=== PATIENT | female | born 1990 | race Caucasian/White ===

== ENCOUNTER 2018-04-10 15:52 | Inpatient (IN) | payer BC ==
[2018-04-10] MEDS ORDERED: fentaNYL* 50 MCG/ML 2 ML VIAL (100 MCG VIAL) ONE (16:54)
[2018-04-10] MEDS ORDERED: OBEPIDURAL* 0 ML EPIDURAL ONE (16:54)
[2018-04-10 16:56] LABS: ABS Basophils 0.1 10^3/ul (0-0.2); ABS Eosinophils 0.4 10^3/ul (0-0.6); ABS Lymphocytes 2.9 10^3/ul (1.0-4.8); ABS Monocytes 0.7 10^3/ul (0-0.8); ABS Nucleated RBC 0 10^3/ul; Eosinophil % 2.6 % (0-6); Hematocrit 39 % (35-47); Hemoglobin 12.9 g/dl (12.0-16.0); Lymphocyte % 17.8 % (25-47); Mean Corpuscular HGB Conc 33 g/dl (31-36); Mean Corpuscular Hemoglobin 28 pg (27-31); Mean Corpuscular Volume 86 fL (80-97); Mean Platelet Volume 7.4 um3 (7.4-10.4); Nucleated Red Blood Cells % 0; Platelet Count 467 10^3/ul (150-450); Red Blood Count 4.52 10^6/ul (4.00-5.40); Red Cell Distribution Width 13 % (10.5-15)
[2018-04-10] MEDS ORDERED: Glycerin ADULT SUPP PR PRN (17:34)
[2018-04-10] MEDS ORDERED: Witch Hazel PAD* JAR TOPICAL PRN (17:34)
[2018-04-10] MEDS ORDERED: Dibucaine 1% 28.35 GM TUBE PR PRN (17:34)
--- NOTE | 2018-04-10 17:34 | HP ---
General Information - Reason for Visit 38 weeks gestation, labor. - General Information Maternal Age: 27 Grav: 2 Para: 1 SAB: 0 IEA: 0 Estimated Due Date: 04/22/18 Determined By: LMP Gestational Age in Weeks/Days: 38 2/7 Maternal Blood Type and Rh: O Positive - Results this Serology/RPR Result: Non-Reactive Rubella Result: Immune HBsAg Result: Negative HIV Result: Negative GBS Culture Result: Negative Past Medical History Delivery History: See Records Pertinent Past Medical History: See Records Pertinent Past Surgical History: See Records Pertinent Family History: See Records - Antepartal Records Antepartal Records: Reviewed, Uncomplicated Review of Systems Constitutional: Comfortable CV Complaint: No Respiratory: Shortness of Breath: No Gastrointestinal: No Nausea/Vomiting, Normal Bowel Movement Genitourinary: No Dysuria, No Bleeding, No Leaking Fluid Musculoskeletal: No Epigastric Pain, Contractions Neurological: No Headache, No Visual Changes Movement: Normal Exam Allergies/Adverse Reactions: Allergies No Known Allergies Allergy (Verified 02/23/16 23:15) Temp 98.7 BP 125/76 P 100 RR18 POx 100% RA Lab Values - Entire Visit: Laboratory Tests 04/10/18 16:40 WBC 16.0 H RBC 4.52 Hgb 12.9 Hct 39 MCV 86 MCH 28 MCHC 33 RDW 13 Plt Count 467 H MPV 7.4 Neut % (Auto) 74.9 Lymph % (Auto) 17.8 L [place] % (Auto) 4.2 Eos % (Auto) 2.6 Baso % (Auto) 0.5 Absolute Neuts (auto) 12.0 H Absolute Lymphs (auto) 2.9 Absolute Monos (auto) 0.7 Absolute Eos (auto) 0.4 Absolute Basos (auto) 0.1 Absolute Nucleated RBC 0 Nucleated RBC % 0 - Measurements Height: 5 ft 3 in Weight: 152 lb Weight in lbs: 152.878968 Body Mass Index (BMI): 26.9 Pre- Weight: 126 lb Weight Gained This : 26 lbs and 0 ozs - Exam Breast: Breast Exam Deferred CVA: No CVA Tenderness Extremities: No Edema Heart: Normal Rhythm/Heart Sounds HEENT: No Significant Findings Lungs: Clear Bilaterally Rectal: Rectal Exam Deferred Reflexes: DTR 2+ Thyroid: No Thyromegaly - Abdominal Exam Abdomen Exam: Non-Tender, Fundal Height Consistent with Dates - Ultrasound/Biophysical Profile Biophysical Profile: Normal Reactive NST Targeted Exam Findings See L&D Outpatient Visit Provider Note for Findings: N/A Cervical Exam: 6cm Effacement: 80% Station: -1 Presenting Part: Vertex Membrane Status: SROM Amniotic Fluid Evaluation: Gross Rupture Bleeding/Discharge: None EFM Findings - External Monitor Findings Baseline Heart Rate: 140 External Monitor Findings: Accelerations Present Contractions: Regular, Strong, 45-90 Seconds Assessment/Plan - Assessment Term in labor. - Plan Plan: IV Hydration, Admit - Anticipate Vaginal Delivery - Date/Time of Admission Date of Admission: 04/10/18 Time of Admission: 16:00
[2018-04-10] MEDS: Acetaminophen TAB* 325 MG PO PRN (20:02)
[2018-04-11] MEDS: Acetaminophen TAB* 325 MG PO PRN ×3 (04:51→20:31)
[2018-04-11 07:24] LABS: ABS Basophils 0 10^3/ul (0-0.2); ABS Eosinophils 0.3 10^3/ul (0-0.6); ABS Lymphocytes 2.9 10^3/ul (1.0-4.8); ABS Monocytes 0.6 10^3/ul (0-0.8); ABS Neutrophils 11.8 10^3/ul (1.5-7.7); ABS Nucleated RBC 0 10^3/ul; Eosinophil % 1.8 % (0-6); Hematocrit 35 % (35-47); Hemoglobin 11.6 g/dl (12.0-16.0); Lymphocyte % 18.6 % (25-47); Mean Corpuscular HGB Conc 34 g/dl (31-36); Mean Corpuscular Hemoglobin 28 pg (27-31); Mean Corpuscular Volume 84 fL (80-97); Mean Platelet Volume 7.6 um3 (7.4-10.4); Nucleated Red Blood Cells % 0.1; Platelet Count 431 10^3/ul (150-450); Red Blood Count 4.12 10^6/ul (4.00-5.40); Red Cell Distribution Width 12 % (10.5-15); White Blood Count 15.6 10^3/ul (3.5-10.8)
--- NOTE | 2018-04-11 08:58 | PROCNOTE ---
[facility] OB: Delivery Note - Delivery A Date of : 04/10/18 Time of : 17:07 Sex: Male Weight at : 5 lb 13 oz Score 1 Minute: 7 Score 5 Minutes: 9 Gestational Age in Weeks and Days at Delivery: 38 Weeks and 2 Days Delivery Method: Spontaneous Vaginal Labor: Spontaneous Did Patient attempt ?: N/A, No Previous Amniotic Fluid: Clear Estimated Blood Loss: 100 Anesthesia/Analgesia: None Delivered By: Mark Spaulding - Nursery Level of Nursery: Regular/Bedside - Perineum Perineal Injury: 2nd Degree Perineal Repair: By Delivering Practioner - Events Delivery Events of Note: Precipitous Delivery
[2018-04-11] MEDS: Docusate CAP* 100 MG PO SCH ×4 (09:09→20:30)
[2018-04-11] MEDS: Simethicone TAB* 80 MG TAB.CHEW PO SCH ×4 (09:11→20:31)
[2018-04-11] MEDS: Ferrous Gluconate TAB* 324 MG TAB PO SCH (09:12)
[2018-04-11] MEDS: Ibuprofen TAB* 600 MG PO PRN ×2 (11:57→18:05)
[2018-04-12] MEDS: Ibuprofen TAB* 600 MG PO PRN ×2 (00:35→07:30)
[2018-04-12 07:45] VITALS: BP 97/56
[2018-04-12] MEDS: Docusate CAP* 100 MG PO SCH (09:27)
[2018-04-12] MEDS: Simethicone TAB* 80 MG TAB.CHEW PO SCH (09:27)
[2018-04-12] MEDS: Ferrous Gluconate TAB* 324 MG TAB PO SCH (10:34)
== END 2018-04-12 11:31 | disposition home or self-care (01) | DRG 560 ==
LOC: MCHOBOUT 15:52 → MCHOB 16:38
PROVIDERS: ADMIT Obstetrics & Gynecology; ATTEND Obstetrics & Gynecology
PROC: 0KQM0ZZ Repair Perineum Muscle, Open Approach (ICD-10-PCS; principal; 2018-04-10)
PROC: 4A1HXCZ Monitoring of Products of Conception, Cardiac Rate, External Approach (ICD-10-PCS; 2018-04-10)
PROC: 10E0XZZ Delivery of Products of Conception, External Approach (ICD-10-PCS; 2018-04-10)
DX: O62.3 Precipitate labor (principal); O70.1 Second degree perineal laceration during delivery; Z3A.38 38 weeks gestation of pregnancy; Z37.0 Single live birth
CPT/HCPCS: 36415; 85025; 86850; 86900; 86901; 88720; 92587; A9270-GY; J3010